=== PATIENT | female | born 1970 | race Caucasian/White ===

== ENCOUNTER → 2016-12-13 | Emergency (ER) | payer OTHER ==
[~2016-12-13] VITALS: Ht 170.2 cm; Wt 53.5 kg
[~2016-12-13] MED LIST: /MOXI40TA; ABIL5TAB5 PO; ACET65TA; AMLO10TA2 PO; ATOR40TA PO; CHLO125TA PO; CITA20TA4 PO; COMBIVENT; FERR325T; FERR325T PO; FLEXERIL PO; HYDR-4274 PO; HYDR25TA6; HYZAAR; IRBE300T10 PO; LABE10TAB PO; LABE200T; LABE20TAB PO; LABE30TA PO; LOPRESSOR; NAPR500T PO; NAPROXEN 250 MG TAB PO ONE; NICO21DI4; NORC5TAB PO; PERC5TAB6 PO; PROV90AE; SPIR25TA2 PO; TRAZ50TA4 PO; VITA50003 PO; [UNRECOGNIZED DRUG - CODE] PO
[2016-12-13 16:16] VITALS: BP 213/131
== END | disposition home or self-care (01) ==
LOC: M ED 17:14
DX: R68.84 Jaw pain (principal)

== ENCOUNTER → 2017-02-18 | Outpatient (CLI) | payer OTHER ==
[~2017-02-18] MED LIST changes: -NAPROXEN 250 MG TAB PO ONE; +NORC1TAB4 PO; -NORC5TAB PO
[2017-02-18 16:18] LABS: ALBUMIN 3.9 GM/DL (3.2-5.2); ALBUMIN/GLOBULIN RATIO 1.11 (1.00-1.93); ALKALINE PHOSPHATASE 49 U/L (45-117); ALT/SGPT 27 U/L (12-78); ANION GAP 6 MEQ/L (8-16); AST/SGOT 24 U/L (15-37); BILIRUBIN,TOTAL 0.4 MG/DL (0.2-1.0); BLOOD UREA NITROGEN 9 MG/DL (7-18); CALCIUM LEVEL 8.6 MG/DL (8.5-10.1); CARBON DIOXIDE LEVEL 27 MEQ/L (21-32); CHLORIDE LEVEL 105 MEQ/L (98-107); CHOLESTEROL LEVEL 203 MG/DL (<200); CREATININE FOR GFR 0.78 MG/DL (0.55-1.02); GLOMERULAR FILTRATION RATE > 60.0 (>58); GLUCOSE, FASTING 109 MG/DL (70-105); POTASSIUM SERUM 4.7 MEQ/L (3.5-5.1); SODIUM LEVEL 138 MEQ/L (136-145); TOTAL PROTEIN 7.4 GM/DL (6.4-8.2); TRIGLYCERIDES LEVEL 86 MG/DL (<150)
== END ==
LOC: M SMT 11:22
PROVIDERS: ATTEND Internal Medicine Cardiovascular Disease
DX: E78.5 Hyperlipidemia, unspecified (principal); I10 Essential (primary) hypertension

== ENCOUNTER 2017-11-27 20:45 | Emergency (ER) | payer OTHER, SELFPAY | END 2017-11-27 21:47 | disposition home or self-care (01) | LOC: M ED 20:45 | DX: Z04.6 Encounter for general psychiatric examination, requested by authority (principal); F41.8 Other specified anxiety disorders; I10 Essential (primary) hypertension; F17.200 Nicotine dependence, unspecified, uncomplicated; Z79.899 Other long term (current) drug therapy | CPT/HCPCS: 99284 ==

== ENCOUNTER 2017-11-30 10:38 | Inpatient (IN) | payer MEDICAID, OTHER ==
[2017-11-30 11:24] LABS: HEMOGLOBIN 14.7 g/dl (12.0-16.0); MEAN CORPUSCULAR HEMOGLOBIN 32.7 pg (27.0-33.0); MEAN CORPUSCULAR VOLUME 93.3 fl (80.0-96.0); PLATELET COUNT, AUTOMATED 213 10^3/uL (150-450)
[2017-11-30 11:39] LABS: CONTROL LINE HCG INT CTR LINE PRESENT; HCG, SERUM QUALITATIVE NEGATIVE (NEGATIVE)
[2017-11-30 11:55] LABS: ALKALINE PHOSPHATASE 63 U/L (45-117); ALT/SGPT 35 U/L (12-78); ANION GAP 13 MEQ/L (8-16); AST/SGOT 32 U/L (7-37); BLOOD UREA NITROGEN 6 MG/DL (7-18); CALCIUM LEVEL 8.5 MG/DL (8.5-10.1); CARBON DIOXIDE LEVEL 22 MEQ/L (21-32); CHLORIDE LEVEL 105 MEQ/L (98-107); CREATININE FOR GFR 0.64 MG/DL (0.55-1.30); GLOMERULAR FILTRATION RATE > 60.0 (>58); GLUCOSE, FASTING 135 MG/DL (70-100); POTASSIUM SERUM 3.6 MEQ/L (3.5-5.1); SODIUM LEVEL 140 MEQ/L (136-145)
[2017-11-30 11:56] LABS: ACETAMINOPHEN LEVEL < 2.0 UG/ML (10.0-30.0); ALBUMIN/GLOBULIN RATIO 1.21 (1.00-1.93); BILIRUBIN,DIRECT < 0.1 MG/DL (0.0-0.2); BILIRUBIN,TOTAL 0.2 MG/DL (0.2-1.0); ETHYL ALCOHOL (ETHANOL) 0.161 % (0.000-0.010); SALICYLATE LEVEL 3.7 MG/DL (5.0-30.0); TOTAL PROTEIN 7.3 GM/DL (6.4-8.2)
[2017-11-30 12:18] LABS: AMPHETAMINES LEVEL URINE NEGATIVE (NEGATIVE); BARBITURATES URINE NEGATIVE (NEGATIVE); BENZODIAZEPINES URINE NEGATIVE (NEGATIVE); CANNABINOIDS URINE NEGATIVE (NEGATIVE); COCAINE METABOLITE URINE NEGATIVE (NEGATIVE); METHADONE URINE NEGATIVE (NEGATIVE); OPIATES URINE NEGATIVE (NEGATIVE); PHENCYCLIDINE URINE NEGATIVE (NEGATIVE)
[2017-11-30] MEDS ORDERED: MOM 30ML SUSPENSION UDC PO (19:00)
[2017-11-30] MEDS ORDERED: MAALOX 30 ML SUSP *UDC PO (19:00)
[2017-11-30] MEDS: SPIRONOLACTONE 25 MG TAB PO (21:41)
[2017-11-30] MEDS: LABETALOL 200 MG TAB PO (21:41)
[2017-11-30] MEDS: CHLORTHALIDONE 12.5MG PER 1/2 TABLET PO (21:41)
[2017-11-30] MEDS: ACETAMINOPHEN TAB 650MG DOSE (2X325MG) PO (21:42)
[2017-11-30] MEDS: traZODone 50 MG TAB PO (22:08)
[2017-12-01] MEDS: LABETALOL 200 MG TAB PO ×2 (08:28→21:39)
[2017-12-01] MEDS: amLODIPine 10 MG TAB PO (08:28)
[2017-12-01] MEDS: ACETAMINOPHEN TAB 650MG DOSE (2X325MG) PO ×2 (09:29→21:40)
[2017-12-01] MEDS: ALBUTEROL 90 MCG/ACT 8GM HFA INHALER INH ×2 (09:29→21:42)
[2017-12-01] MEDS ORDERED: FLUoxetine 10 MG CAP PO (16:00)
[2017-12-01] MEDS: FLUoxetine 10 MG CAP PO (17:27)
[2017-12-01] MEDS: SPIRONOLACTONE 25 MG TAB PO (21:40)
[2017-12-01] MEDS: traZODone 50 MG TAB PO (21:40)
[2017-12-01] MEDS: CHLORTHALIDONE 12.5MG PER 1/2 TABLET PO (21:40)
[2017-12-02] MEDS: ACETAMINOPHEN TAB 650MG DOSE (2X325MG) PO (05:05)
[2017-12-02] MEDS: LABETALOL 200 MG TAB PO ×2 (09:43→21:48)
[2017-12-02] MEDS: FLUoxetine 10 MG CAP PO (09:43)
[2017-12-02] MEDS: amLODIPine 10 MG TAB PO (09:43)
[2017-12-02] MEDS: GABAPENTIN 100 MG CAP PO ×2 (16:24→21:49)
[2017-12-02] MEDS: IBUPROFEN 600 MG TAB PO (21:48)
[2017-12-02] MEDS: CHLORTHALIDONE 12.5MG PER 1/2 TABLET PO (21:48)
[2017-12-02] MEDS: SPIRONOLACTONE 25 MG TAB PO (21:48)
[2017-12-02] MEDS: traZODone 50 MG TAB PO (21:51)
[2017-12-03] MEDS: ACETAMINOPHEN TAB 650MG DOSE (2X325MG) PO ×3 (02:14→22:27)
[2017-12-03] MEDS: LABETALOL 200 MG TAB PO ×2 (08:32→22:24)
[2017-12-03] MEDS: GABAPENTIN 100 MG CAP PO ×3 (08:32→22:24)
[2017-12-03] MEDS: FLUoxetine 10 MG CAP PO (08:33)
[2017-12-03] MEDS: amLODIPine 10 MG TAB PO (08:33)
[2017-12-03] MEDS: IBUPROFEN 600 MG TAB PO ×2 (08:33→22:20)
[2017-12-03] MEDS: ALBUTEROL 90 MCG/ACT 8GM HFA INHALER INH (08:34)
[2017-12-03] MEDS: SPIRONOLACTONE 25 MG TAB PO (22:20)
[2017-12-03] MEDS: CHLORTHALIDONE 12.5MG PER 1/2 TABLET PO (22:20)
[2017-12-04] MEDS: LABETALOL 200 MG TAB PO (08:38)
[2017-12-04] MEDS: GABAPENTIN 100 MG CAP PO (08:38)
[2017-12-04] MEDS: amLODIPine 10 MG TAB PO (08:38)
[2017-12-04] MEDS: FLUoxetine 10 MG CAP PO (08:38)
== END 2017-12-04 11:20 | disposition home or self-care (01) | DRG 881 ==
LOC: M PSY 12-02 18:34 → M ED 10:38 → M ED INP 15:05 → M PSY 16:05
DX: F32.9 Major depressive disorder, single episode, unspecified (principal); I10 Essential (primary) hypertension; Z98.1 Arthrodesis status; Z85.41 Personal history of malignant neoplasm of cervix uteri; Z79.899 Other long term (current) drug therapy; Z88.8 Allergy status to other drugs, medicaments and biological substances; Z91.013 Allergy to seafood

== ENCOUNTER → 2017-12-11 | Outpatient (CLI) | payer OTHER | LOC: M PLARAD 13:35 | DX: M48.02 Spinal stenosis, cervical region (principal); Z98.1 Arthrodesis status | CPT/HCPCS: 72156 ==

== ENCOUNTER → 2017-12-24 | Outpatient (REF) | payer OTHER ==
[2017-12-24 22:40] LABS: CHLAMYDIA DNA AMPLIFICATION NEGATIVE (NEGATIVE); GC DNA AMPLIFICATION NEGATIVE (NEGATIVE)
== END ==
LOC: M LAB REF 17:13
DX: Z11.3 Encounter for screening for infections with a predominantly sexual mode of transmission (principal)

== ENCOUNTER → 2017-12-24 | Outpatient (REF) | payer OTHER, MEDICAID ==
[2017-12-24 18:41] LABS: BASO % 0.4 % (0.0-1.0); EOS # 0.1 10^3/uL (0.0-0.50); EOS % 1.3 % (0.0-3.0); HEMATOCRIT 42.7 % (36.0-47.0); HEMOGLOBIN 14.2 g/dl (12.0-15.5); IMMATURE GRANULOCYTE % 0.1 % (0-3.0); LYMPH # 1.2 10^3/uL (1.5-4.5); LYMPH % 17.9 % (24.0-44.0); MEAN CORPUSCULAR HEMOGLOBIN 32.1 pg (27.0-33.0); MEAN CORPUSCULAR HGB CONC 33.3 g/dl (32.0-36.5); MEAN CORPUSCULAR VOLUME 96.4 fl (80.0-96.0); MONO # 0.4 10^3/uL (0.0-0.8); MONO % 6.1 % (0.0-5.0); NEUTROPHILS % 74.2 % (36.0-66.0); PLATELET COUNT, AUTOMATED 206 10^3/uL (150-450); RED BLOOD COUNT 4.43 10^6/uL (4.00-5.40); RED CELL DISTRIBUTION WIDTH 14.2 % (11.5-14.5); WHITE BLOOD COUNT 6.7 10^3/uL (4.0-10.0)
[2017-12-24 18:46] LABS: ALBUMIN 4.1 GM/DL (3.2-5.2); ALBUMIN/GLOBULIN RATIO 1.21 (1.00-1.93); ALKALINE PHOSPHATASE 54 U/L (45-117); ALT/SGPT 44 U/L (12-78); ANION GAP 10 MEQ/L (8-16); AST/SGOT 33 U/L (7-37); BILIRUBIN,TOTAL 0.3 MG/DL (0.2-1.0); BLOOD UREA NITROGEN 9 MG/DL (7-18); CALCIUM LEVEL 8.5 MG/DL (8.5-10.1); CARBON DIOXIDE LEVEL 25 MEQ/L (21-32); CHLORIDE LEVEL 110 MEQ/L (98-107); CHOLESTEROL LEVEL 190 MG/DL (<200); CHOLESTEROL RISK RATIO 1.792 (<5); CREATININE FOR GFR 0.68 MG/DL (0.55-1.30); FREE T4 0.68 NG/DL (0.76-1.46); GLOMERULAR FILTRATION RATE > 60.0 (>58); GLUCOSE, FASTING 93 MG/DL (70-100); HDL CHOLESTEROL 106 MG/DL (>40); LDL CHOLESTEROL 65.8 MG/DL (<100); NON-HDL-C 84 MG/DL; POTASSIUM SERUM 3.9 MEQ/L (3.5-5.1); SODIUM LEVEL 145 MEQ/L (136-145); TOTAL PROTEIN 7.5 GM/DL (6.4-8.2); TRIGLYCERIDES LEVEL 91 MG/DL (<150)
== END ==
LOC: M LAB REF 17:23
DX: F34.1 Dysthymic disorder (principal); Z13.220 Encounter for screening for lipoid disorders

== ENCOUNTER 2018-02-05 10:04 | Emergency (ER) | payer OTHER, MEDICAID ==
[2018-02-05] MEDS: ASPIRIN 81 MG CHEW TABLET PO (10:37)
[2018-02-05 10:47] LABS: BASO % 0.6 % (0.0-1.0); EOS # 0.1 10^3/uL (0.0-0.50); EOS % 0.9 % (0.0-3.0); HEMATOCRIT 42.8 % (36.0-47.0); HEMOGLOBIN 14.7 g/dl (12.0-15.5); IMMATURE GRANULOCYTE % 0.7 % (0-3.0); LYMPH % 18.5 % (24.0-44.0); MEAN CORPUSCULAR HEMOGLOBIN 32.3 pg (27.0-33.0); MEAN CORPUSCULAR HGB CONC 34.3 g/dl (32.0-36.5); MEAN CORPUSCULAR VOLUME 94.1 fl (80.0-96.0); MONO # 0.6 10^3/uL (0.0-0.8); MONO % 11.8 % (0.0-5.0); NEUTROPHILS # 3.6 10^3/uL (1.8-7.7); NEUTROPHILS % 67.5 % (36.0-66.0); PLATELET COUNT, AUTOMATED 144 10^3/uL (150-450); RED BLOOD COUNT 4.55 10^6/uL (4.00-5.40); RED CELL DISTRIBUTION WIDTH 13.9 % (11.5-14.5); WHITE BLOOD COUNT 5.3 10^3/uL (4.0-10.0)
[2018-02-05 11:21] LABS: ALBUMIN 3.8 GM/DL (3.2-5.2); ALBUMIN/GLOBULIN RATIO 1.12 (1.00-1.93); ALKALINE PHOSPHATASE 71 U/L (45-117); ALT/SGPT 51 U/L (12-78); ANION GAP 9 MEQ/L (8-16); AST/SGOT 43 U/L (7-37); BILIRUBIN,DIRECT 0.2 MG/DL (0.0-0.2); BILIRUBIN,TOTAL 0.7 MG/DL (0.2-1.0); BLOOD UREA NITROGEN 17 MG/DL (7-18); CALCIUM LEVEL 8.7 MG/DL (8.5-10.1); CARBON DIOXIDE LEVEL 27 MEQ/L (21-32); CHLORIDE LEVEL 103 MEQ/L (98-107); CK-MB VALUE MASS 1.3 NG/ML (<3.6); CPK CREATINE PHOSPHOKINASE 83 U/L (26-192); CREATININE FOR GFR 0.81 MG/DL (0.55-1.30); GLOMERULAR FILTRATION RATE > 60.0 (>58); GLUCOSE, FASTING 115 MG/DL (70-100); MB/CK RELATIVE INDEX 1.56 (< OR =4); NT-PRO BNP 105 PG/ML (<125); POTASSIUM SERUM 4.2 MEQ/L (3.5-5.1); SODIUM LEVEL 139 MEQ/L (136-145); TOTAL PROTEIN 7.2 GM/DL (6.4-8.2); TROPONIN I < 0.02 NG/ML (< 0.10)
[2018-02-05] MEDS: amLODIPine 5 MG TAB PO (12:53)
[2018-02-05] MEDS: LABETALOL HCL 100 MG/20 ML VIAL IV (12:53)
[2018-02-05] MEDS: MAALOX 30 ML SUSP *UDC PO (13:38)
[2018-02-05] MEDS: PHENobarbital ELIX 20 MG/5 ML UD PO (13:38)
== END 2018-02-05 13:39 | disposition home or self-care (01) ==
LOC: M ED 10:04
DX: R00.2 Palpitations (principal); R07.89 Other chest pain; I45.19 Other right bundle-branch block; I10 Essential (primary) hypertension; E78.5 Hyperlipidemia, unspecified; Z82.49 Family history of ischemic heart disease and other diseases of the circulatory system; I25.2 Old myocardial infarction; Z79.899 Other long term (current) drug therapy; Z88.8 Allergy status to other drugs, medicaments and biological substances; Z91.013 Allergy to seafood
CPT/HCPCS: 71045

== ENCOUNTER → 2018-03-05 | Outpatient (CLI) | payer OTHER | LOC: M OUTALCOH 09:56 | DX: Z03.89 Encounter for observation for other suspected diseases and conditions ruled out (principal) ==

== ENCOUNTER 2018-03-15 10:22 | Outpatient (RCR) | payer MEDICAID | END 2018-04-13 | LOC: M OUTALCOH 10:22 | DX: Z03.89 Encounter for observation for other suspected diseases and conditions ruled out (principal) ==

== ENCOUNTER 2018-04-14 19:12 | Emergency (ER) | payer OTHER, MEDICAID | END 2018-04-14 20:45 | disposition home or self-care (01) | LOC: M ED 19:12 | DX: T24.202A Burn of second degree of unspecified site of left lower limb, except ankle and foot, initial encounter (principal); Y92.9 Unspecified place or not applicable; Y93.9 Activity, unspecified; I25.2 Old myocardial infarction; I10 Essential (primary) hypertension; G43.909 Migraine, unspecified, not intractable, without status migrainosus; M54.9 Dorsalgia, unspecified; Z87.440 Personal history of urinary (tract) infections; F41.9 Anxiety disorder, unspecified; F32.9 Major depressive disorder, single episode, unspecified; Z85.41 Personal history of malignant neoplasm of cervix uteri; Z79.899 Other long term (current) drug therapy; Z91.013 Allergy to seafood; Z88.8 Allergy status to other drugs, medicaments and biological substances | CPT/HCPCS: 99283 ==

== ENCOUNTER → 2018-04-27 | Outpatient (CLI) | payer OTHER ==
[2018-04-27 11:12] LABS: PLATELET COUNT, AUTOMATED 235 10^3/uL (150-450)
[2018-04-27 11:35] LABS: INR 1.03; PARTIAL THROMBOPLASTIN TIME 31.5 SECONDS (25.4-37.6); PROTHROMBIN TIME 13.6 SECONDS (12.1-14.4)
== END ==
LOC: M LAB 10:49
DX: M48.02 Spinal stenosis, cervical region (principal)
CPT/HCPCS: 85049

== ENCOUNTER 2018-10-01 21:20 | Emergency (ER) | payer OTHER ==
[~2018-10-01] VITALS: Ht 170.2 cm; Wt 54.5 kg
[~2018-10-01 21:20] MED LIST changes: +ABIL1TAB11 PO; -ABIL5TAB5 PO; -AMLO10TA2 PO; +AMLO10TA5 PO; -ATOR40TA PO; +ATOR40TA75 PO; +CHLO25TA PO; +FERR1TAB8 PO; -FERR325T PO; +GABA-1171 PO; -HYDR-4274 PO; +HYDR50TA70 PO; +KEFL500C17 PO; +LABE300T2 PO; -LABE30TA PO; +NAPR-50 PO; -NAPR500T PO; +PERC5TAB12 PO; -PERC5TAB6 PO; +PROZ10CA7 PO; +SPIR-10 PO; -SPIR25TA2 PO; +TRAZ-160 PO; -TRAZ50TA4 PO; +TRAZO50TA PO; +VENTAER INH; -VITA50003 PO; +VITA50005 PO
[2018-10-01] MEDS ORDERED: HYDR-3363 PO (21:32)
[2018-10-01] MEDS ORDERED: CITA40TA4 PO (21:32)
[2018-10-01] MEDS ORDERED: METH1TAB40 PO (21:32)
[2018-10-01] MEDS ORDERED: TRAZ-163 (21:32)
[2018-10-01] MEDS ORDERED: KETOROLAC 30 MG/ML VIAL (J1885) IV ONE (22:15)
[2018-10-01 22:45] VITALS: BP 180/90
--- NOTE | 2018-10-02 13:10 | REP ---
LUMBAR SPINE SERIES, COMPLETE: 10/01/2018. Clinical history: Trauma, patient fell. Back pain. Comparison: CT abdomen pelvis reconstructions 12/19/2014. Findings: Five views are provided. There are no compression deformities in the lumbar spine. There is a gentle dextrorotatory curve centered at L2-3. Pedicle, spinous and transverse processes intact. Lower thoracic levels and ribs intact. Sacral ala, foramina, SI joints unremarkable. I see no spondylolysis or spondylolisthesis. Slight loss of lordosis on the lateral view but unchanged from the CT 4 years ago. Facet arthropathy at L4-5 and L5-S1. Impression: 1. Some degenerative facet arthritic changes lower lumbar spine and minimal degenerative changes at the endplates without compression deformity or malalignment. 2. Slight loss of lordosis as seen on previous CT. This may be due to spasm or the mild dextrorotatory curvature of the spine. Electronically Signed by Olayinka Bai MD 10/02/2018 02:03 P
--- NOTE | 2018-10-02 13:11 | REP ---
AP PELVIS WITH BILATERAL HIPS: 10/01/2018. Clinical history: Trauma, patient fell. Pain. Comparison: CT abdomen pelvis 12/19/2014. Findings: AP pelvis: This sacral ala and foramina symmetric and normal. SI joints and iliac wings unremarkable pelvic ring intact. Pubic rami, pubic symphysis and hips grossly intact. Right hip: There is no evidence of fracture, AVN or focal bone lesion in the hip the acetabular margins are sharply defined. No joint space narrowing. Left hip: There is no evidence of fracture, AVN or focal bone lesion in the hip the acetabular margins are sharply defined. No joint space narrowing. Impression: 1. No evidence of fracture or acute bony finding, pelvis or hips. Electronically Signed by Olayinka Bai MD 10/02/2018 02:03 P
== END 2018-10-01 23:22 | disposition home or self-care (01) ==
LOC: M ED 21:20
DX: M54.5 Low back pain (principal); S70.01XA Contusion of right hip, initial encounter; W19.XXXA Unspecified fall, initial encounter; Y92.89 Other specified places as the place of occurrence of the external cause; Y99.0 Civilian activity done for income or pay; I10 Essential (primary) hypertension; F33.9 Major depressive disorder, recurrent, unspecified; F41.9 Anxiety disorder, unspecified
CPT/HCPCS: 72110; 73521; 96374; 99284; J1885

== ENCOUNTER → 2018-12-28 | Outpatient (REF) | payer OTHER, MEDICAID ==
[~2018-12-28] MED LIST changes: -/MOXI40TA; +AVEL1TAB2; -CITA20TA4 PO; +CITA20TA6 PO; +CITA40TA4 PO; +HYDR-3363 PO; +METH1TAB40 PO; -NAPR-50 PO; +NAPR-837 PO; -NORC1TAB4 PO; +NORC1TAB7 PO; +TRAZ-163
[2018-12-28 20:30] LABS: CHLAMYDIA DNA AMPLIFICATION NEGATIVE (NEGATIVE); GC DNA AMPLIFICATION NEGATIVE (NEGATIVE)
== END ==
LOC: M LAB REF 17:22
PROVIDERS: ATTEND Nurse Practitioner Family
DX: Z12.4 Encounter for screening for malignant neoplasm of cervix (principal); R87.610 Atypical squamous cells of undetermined significance on cytologic smear of cervix (ASC-US)

== ENCOUNTER 2019-03-01 08:45 | Outpatient (RCR) | payer MEDICARE, OTHER ==
[~2019-03-01 08:45] MED LIST changes: -TRAZ-160 PO; +TRAZ-252 PO; +TRAZ1TAB10 PO; -TRAZO50TA PO
== END 2019-03-13 ==
LOC: M PT 08:45
PROVIDERS: ATTEND Physician Assistant
DX: M50.31 Other cervical disc degeneration, high cervical region (principal); M50.223 Other cervical disc displacement at C6-C7 level; M48.02 Spinal stenosis, cervical region; M47.22 Other spondylosis with radiculopathy, cervical region

== ENCOUNTER 2019-04-11 17:46 | Emergency (ER) | payer MEDICARE, OTHER ==
[~2019-04-11] VITALS: Ht 167.6 cm; Wt 59.1 kg
[~2019-04-11 17:46] MED LIST changes: -TRAZ-163; +TRAZ-257
[2019-04-11 19:00] VITALS: BP 190/122
[2019-04-12] MEDS ORDERED: GABA-843 (08:50)
[2019-04-12] MEDS ORDERED: AMLO5TAB6 PO (13:46)
[2019-04-12] MEDS ORDERED: MOBI4TAB PO (13:46)
[2019-04-12] MEDS ORDERED: HYDR-3363 PO (13:46)
[2019-04-12] MEDS ORDERED: GABA600T4 PO ×2 (13:46)
--- NOTE | 2019-04-13 19:18 | ECGEPIP ---
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
== END 2019-04-11 19:25 | disposition left against medical advice (07) ==
LOC: M ED 17:46
DX: Z53.29 Procedure and treatment not carried out because of patient's decision for other reasons (principal)

== ENCOUNTER 2019-04-12 08:44 | Inpatient (IN) | payer MEDICARE, OTHER ==
[~2019-04-12] VITALS: Ht 167.6 cm; Wt 58.7 kg
[~2019-04-12 08:44] MED LIST changes: +TRAZ-163; -TRAZ-257
[2019-04-12] MEDS ORDERED: GABA-843 (08:50)
[2019-04-12] MEDS ORDERED: LABETALOL HCL 100 MG/20 ML VIAL IV STA ×3 (09:14→14:27)
[2019-04-12 09:29] LABS: BASO % 0.4 % (0.0-1.0); EOS # 0.1 10^3/uL (0.0-0.50); EOS % 0.6 % (0.0-3.0); HEMATOCRIT 43.8 % (36.0-47.0); LYMPH # 2.2 10^3/uL (1.5-4.5); LYMPH % 23.6 % (24.0-44.0); MEAN CORPUSCULAR HEMOGLOBIN 32.4 pg (27.0-33.0); MEAN CORPUSCULAR HGB CONC 34.2 g/dl (32.0-36.5); MEAN CORPUSCULAR VOLUME 94.6 fl (80.0-96.0); MONO # 0.6 10^3/uL (0.0-0.8); NEUTROPHILS # 6.4 10^3/uL (1.8-7.7); NEUTROPHILS % 69.1 % (36.0-66.0); PLATELET COUNT, AUTOMATED 236 10^3/uL (150-450); RED BLOOD COUNT 4.63 10^6/uL (4.00-5.40); WHITE BLOOD COUNT 9.3 10^3/uL (4.0-10.0)
[2019-04-12] MEDS ORDERED: ONDANSETRON 4MG/2ML VIAL (J2405) As Ordered ONE (09:33)
[2019-04-12] MEDS ORDERED: GI COCKTAIL 50ML BTL(HYOSCYAMINE/MAALOX/LIDOCAINE VISCOUS)(1:3:1) PO ONE (09:45)
[2019-04-12] MEDS ORDERED: ONDANSETRON 4MG/2ML VIAL (J2405) IV ONE (09:45)
[2019-04-12 10:15] LABS: BLOOD UREA NITROGEN 7 MG/DL (7-18); CALCIUM LEVEL 8.8 MG/DL (8.5-10.1); CARBON DIOXIDE LEVEL 19 MEQ/L (21-32); CHLORIDE LEVEL 94 MEQ/L (98-107); CK-MB VALUE MASS 2.6 NG/ML (<3.6); CPK CREATINE PHOSPHOKINASE 184 U/L (26-192); CREATININE FOR GFR 0.76 MG/DL (0.55-1.30); GLOMERULAR FILTRATION RATE > 60.0 (>58); GLUCOSE, FASTING 100 MG/DL (70-100); MB/CK RELATIVE INDEX 1.41 (< OR =4); POTASSIUM SERUM 3.9 MEQ/L (3.5-5.1); SODIUM LEVEL 129 MEQ/L (136-145); TROPONIN I < 0.02 NG/ML (< 0.10)
--- NOTE | 2019-04-12 10:20 | REP ---
Clinical: Acute chest pain . Comparison: 02/05/2018 . Findings: The mediastinum and cardiac silhouette are stable and within normal limits for portable technique. The lung lopez are clear without acute consolidation, effusion, or pneumothorax. Skeletal structures are intact. Impression: No acute cardiopulmonary process appreciated. Electronically Signed by Finn Hadley MD 04/12/2019 10:03 A
[2019-04-12 10:51] LABS: APPEARANCE, URINE CLEAR (CLEAR); BACTERIA, URINE AUTO NEGATIVE (NEGATIVE); BILIRUBIN, URINE AUTO NEGATIVE (NEGATIVE); BLOOD, URINE BLOOD NEGATIVE (NEGATIVE); COLOR, URINE STRAW (YELLOW); GLUCOSE, URINE (UA) AUTO NEGATIVE (NEGATIVE); KETONE, URINE AUTO TRACE mg/dL (NEGATIVE); LEUKOCYTE ESTERASE, URINE AUTO NEGATIVE (NEGATIVE); NITRITE, URINE AUTO NEGATIVE (NEGATIVE); PROTEIN, URINE AUTO NEGATIVE (NEGATIVE); RBC, URINE AUTO 1 /HPF (0-3); SPECIFIC GRAVITY URINE AUTO 1.003 (1.002-1.035); SQUAMOUS EPITHELIAL CELL UR AU 0 /HPF (0-6); UROBILINOGEN, URINE AUTO 0.2 mg/dL (0.0-2.0); WBC, URINE AUTO 0 /HPF (0-3)
[2019-04-12] MEDS ORDERED: PROMETHAZINE INJ 25 MG/ML VIAL (J2550) IV ONE (12:15)
[2019-04-12] MEDS ORDERED: AMLO5TAB6 PO (13:46)
[2019-04-12] MEDS ORDERED: MOBI4TAB PO (13:46)
[2019-04-12] MEDS ORDERED: GABA600T4 PO ×2 (13:46)
[2019-04-12] MEDS ORDERED: HYDR-3363 PO (13:46)
[2019-04-12] MEDS ORDERED: LABETALOL HCL 100 MG/20 ML VIAL IV SCH ×2 (17:00→18:00)
[2019-04-12] MEDS ORDERED: FAMOTIDINE 20 MG TAB PO ONE (17:00)
[2019-04-12] MEDS ORDERED: LABETALOL HCL 100 MG/20 ML VIAL IV PRN (17:30)
[2019-04-12 18:14] VITALS: BP 138/75
[2019-04-12 20:00] VITALS: BP 150/91
[2019-04-12] MEDS ORDERED: MELOXICAM (MOBIC) 7.5 MG TAB PO PRN (20:05)
[2019-04-12] MEDS: LABETALOL 200 MG TAB PO SCH (20:12)
[2019-04-12] MEDS: GABAPENTIN 300 MG CAP PO SCH ×2 (20:12→20:14)
[2019-04-12] MEDS ORDERED: ACETAMINOPHEN 500 MG TAB PO PRN (20:15)
[2019-04-12] MEDS ORDERED: MAALOX 30 ML SUSP *UDC PO PRN (20:15)
--- NOTE | 2019-04-12 20:47 | ECHO ---
DATE OF PROCEDURE: 04/12/2019 AGE: 48 GENDER: Female HEIGHT: 66 inches WEIGHT: 130 pounds BODY SURFACE AREA: 1.67 m2 PATIENT LOCATION: Inpatient, PCU, room 3222 REFERRING PHYSICIAN: Dr. Dawood Monsalve INDICATION: Chest pain. 2-D MEASUREMENTS: RV: 3.0 cm LV: 3.7 cm Septum: 1.3 cm Posterior wall: 1.3 cm Aortic root: 3.3 cm LA: 3.6 cm LVEF: 80% DOPPLER MEASUREMENTS: AV: 1.4 m/s LVOT: 1.2 m/s LVOT diameter: 2.2 cm MV-E: 43, A: 63, EA ratio: 0.7 Early mitral deceleration time: 292 ms E prime: 5.8, A prime: 7.3, E/E prime ratio: 7.4 PV: 1.0 m/s Pulmonary artery acceleration time: 116 ms PASP: 32 mmHg IVC: 1.5 cm COMMENTS Normal sinus rhythm without intraventricular conduction disturbance. M-mode and two-dimensional echocardiography was performed with pulsed, continuous wave, color flow and tissue Doppler studies. Mild concentric left ventricle hypertrophy with hyperkinetic wall motion. Left atrial size upper limits of normal with Doppler evidence of an impairment of LV diastolic function but currently normal estimated mean left atrial pressure. Normal right heart chamber sizes and motion with current Doppler sign of borderline pulmonary hypertension. Normal IVC size and collapse against an elevated central venous pressure. Normal appearing and functioning valvular structures. Normal aortic root size. No apparent intracardiac mass or pericardial effusion.
--- NOTE | 2019-04-12 21:03 | HPEPDOC ---
General Date of Admission Apr 12, 2019 at 16:35 Date of Service: Apr 12, 2019 Chief Complaint The patient is a 48-year-old female admitted with a reason for visit of Uncontrolled Stage 2 Hypertension. Source: Patient History of Present Illness HPI: 48 y/o F with uncontrolled HTN, hx depression, anxiety, hx EtOH abuse, former smoker presents with multiple general complaints including weakness, fatigue, headache, epigastric pain. This all started the night prior to presentation. Patient states she was recently seen by her outside welfare centre manager Dr. Nuno who recently (Approx 2 weeks ago) decreased her antihypertensive medications (decreased Labetalol 200mg TID to BID) and since then she has noted having increased blood pressures. This morning when she took her blood pressure at home she noted her pressure to be >200/[address] Cuevas who instructed her to take an additional dose of Labetalol and come to the ED for evaluation. In the ED she was found to be hypertensive to 220/130 with HR in the 80s. She was given Labetalol 20mg IV x3 in attempt to reduce her BP which remained elevated to 185/100 at the time of my evaluation. Her only complaint is of a mild headache at this time. She denies fevers, chills, blurry vision, confusion, chest pain, palpitations, cough, wheezing, SOB, orthopnea, abd pain, n/v/diarrhea, dysuria, polyuria, incontinence, focal weakness, LE swelling, falls, trauma. 10 point ROS negative except as listed in HPI. Allergies: Lisinopril: patient endorses anxiety, grinding teeth. Shellfish: severe itching Home Medications: Labetalol 200mg BID, Chlorthaladone 12.5mg daily, Spironolactone 25mg daily, Norvasc 5mg daily. Home Medications Scheduled Amlodipine Besylate (Amlodipine Besylate) 5 Mg Tablet, 5 MG PO DAILY, (Reported) Chlorthalidone (Chlorthalidone) 25 Mg Tab, 12.5 MG PO DAILY, (Reported) NO RECORD OF THIS MEDICATION FROM PHARMACY - PATIENT STATES SHE IS TAKING. LAST RX FROM DR NUNO FROM 2015 Citalopram Hydrobromide (Citalopram HBr) 40 Mg Tab, 40 MG PO DAILY, (Reported) Gabapentin (Gabapentin) 600 Mg Tablet, 600 MG PO BID, (Reported) AM AND HS Gabapentin (Gabapentin) 600 Mg Tablet, 1,200 MG PO DAILY, (Reported) NOON Labetalol HCl (Labetalol HCl) 200 Mg Tab, 200 MG PO TID, (Reported) PATIENT TOOK 400MG 04/12/19 AM Spironolactone (Spironolactone) 25 Mg Tab, 25 MG PO DAILY, (Reported) NO RECORD OF THIS MEDICATION FROM PHARMACY - PATIENT STATES SHE IS TAKING. LAST RX FROM DR NUNO FROM 2016 Scheduled PRN Hydroxyzine HCl (Hydroxyzine HCl) 25 Mg Tablet, 25 MG PO BID PRN for ANXIETY, (Reported) Meloxicam (Mobic) 7.5 Mg Tablet, 7.5 MG PO BID PRN for PAIN, (Reported) Methocarbamol (Methocarbamol) 500 Mg Tab, 500 MG PO BID PRN for SPASMS, (Reported) Allergies Coded Allergies: lisinopril (Verified Allergy, Unknown, 04/11/19) shellfish derived (Verified Allergy, Unknown, 04/11/19) Past Medical History Medical History Uncontrolled HTN, Depression, Anxiety, former EtOH abuse, former smoker quit 6 months ago Surgical History spinal fusion, x3, tubal ligation Family History Father alive, 68 y/o, uncontrolled HTN and L CVA Social History * Smoker: former Smoker Alcohol: Denies Drugs: denies lives with , denies illicit drug use (including cocaine), no current EtOH use, denies current tobacco use (quit 6 months ago) A-FIB/CHADSVASC A-FIB History Current/History of A-Fib/PAF?: No Review of Systems Psych: Reports: Mood Normal Physical Examination General Exam: Positive: Cooperative, No Acute Distress Eye Exam: Positive: PERRLA, Conjunctiva & lids normal, EOMI ENT Exam: Positive: Atraumatic, Mucous membr. moist/pink Neck Exam: Positive: Supple Chest Exam: Positive: Clear to auscultation, Normal air movement Heart Exam: Negative: Rate Normal, Bradycardic, Regular Rhythm, Irregular Rhyth m, Normal S1, Normal S2, Gallops, Murmurs, Rubs, Other Telemetry: Positive: No significant arrhythmia Abdomen Exam: Positive: Normal bowel sounds, Soft Neuro Exam: Positive: Normal Speech Psych Exam: Positive: Mental status NL, Mood NL Other physical findings GEN: female of stated age, NAD HEENT: EOMI, MMM, no icterus, neck supple Cardio: S1/S2 present, RRR, no m/r/g, no JVD, No LE edema Pulses bounding Lungs: CTA b/l, good air entry, no rales or rhonchi Abd: soft, nd, nt, bs present, no guarding or rigidity Lymph nodes: no palpable lymphadenopathy MSK: strength 5/5 throughout Neuro: A&Ox3, no focal deficits Psych: Normal mood and affect Vital Signs Vital Signs Date Time Temp Pulse Resp B/P (MAP) Pulse Ox O2 Delivery O2 Flow Rate FiO2 04/12/19 20:12 86 150/91 04/12/19 20:00 97.2 21 93 04/12/19 14:15 Room Air Laboratory Data Labs 24H Laboratory Tests 2 04/12/19 09:14: Immature Granulocyte % (Auto) 0.3, White Blood Count 9.3, Red Blood Count 4.63, Hemoglobin 15.0, Hematocrit 43.8, Mean Corpuscular Volume 94.6, Mean Corpuscular Hemoglobin 32.4, Mean Corpuscular Hemoglobin Concent 34.2, Red Cell Distribution Width 13.7, Platelet Count 236, Neutrophils (%) (Auto) 69.1H, Lymphocytes (%) (Auto) 23.6L, Monocytes (%) (Auto) 6.0H, Eosinophils (%) (Auto) 0.6, Basophils (%) (Auto) 0.4, Neutrophils # (Auto) 6.4, Lymphocytes # (Auto) 2.2, Monocytes # (Auto) 0.6, Eosinophils # (Auto) 0.1, Basophils # (Auto) 0.0, Nucleated Red Blood Cells % (auto) 0.0, Anion Gap 16, Glomerular Filtration Rate > 60.0, Blood Urea Nitrogen 7, Creatinine 0.76, Sodium Level 129L, Potassium Level 3.9, Chloride Level 94L, Carbon Dioxide Level 19L, Calcium Level 8.8, Total Creatine Kinase 184, Creatine Kinase MB 2.6, Creatine Kinase MB Relative Index 1.41, Troponin I < 0.02 04/12/19 10:32: Urine Appearance CLEAR, Urine Color STRAW, Urine pH 6.0, Urine Specific [place] 1.003, Urine Protein NEGATIVE, Urine Glucose (UA) NEGATIVE, Urine Ketones TRAC EH, Urine Urobilinogen 0.2, Urine Bilirubin NEGATIVE, Urine Leukocyte Esterase NEGATIVE, Urine Blood NEGATIVE, Urine Nitrite NEGATIVE, Urine WBC (Auto) 0, Urine RBC (Auto) 1, Urine Hyaline Casts (Auto) 0, Urine Bacteria (Auto) NEGATIVE, Urine Squamous Epithelial Cells 0, Urine Sperm (Auto) CBC/BMP Laboratory Tests 04/12/19 09:14 Red Blood Count 4.63, Mean Corpuscular Volume 94.6, Mean Corpuscular Hemoglobin 32.4, Mean Corpuscular Hemoglobin Concent 34.2, Red Cell Distribution Width 13.7, Neutrophils (%) (Auto) 69.1 H, Lymphocytes (%) (Auto) 23.6 L, Monocytes (%) (Auto) 6.0 H, Eosinophils (%) (Auto) 0.6, Basophils (%) (Auto) 0.4, Neutrophils # (Auto) 6.4, Lymphocytes # (Auto) 2.2, Monocytes # (Auto) 0.6, Eosinophils # (Auto) 0.1, Basophils # (Auto) 0.0, Calcium Level 8.8, Total Creatine Kinase 184 Assessment/Plan 48 y/o F with uncontrolled HTN, hx depression, anxiety, hx EtOH abuse, former smoker presents with multiple general complaints including weakness, fatigue, headache, epigastric pain. Found to have hypertensive urgency without end organ damage but requiring IV medications. Patient admitted to PCU. Hypertensive urgency with uncontrolled HTN -likely due to recent medications changes -restart Labetalol 200mg PO TID, Increase home Amlodipine to 10mg daily, continue Spironolactone -Labetalol 20mg IVP q4 hours PRN BP >180/100, hold if HR <70. 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 Dvt ppx: Lovenox Plan / VTE VTE Prophylaxis Ordered?: Yes Plan Diet: Continue Current Anticipated Discharge: Home RAIAS JEAN MD Apr 12, 2019 21:03
[2019-04-12 21:44] VITALS: BP 129/77
[2019-04-12 23:59] VITALS: BP 135/81
[2019-04-13 04:00] VITALS: BP 130/77
[2019-04-13 06:20] LABS: HEMATOCRIT 42.1 % (36.0-47.0); HEMOGLOBIN 14.1 g/dl (12.0-15.5); MEAN CORPUSCULAR HEMOGLOBIN 31.8 pg (27.0-33.0); MEAN CORPUSCULAR HGB CONC 33.5 g/dl (32.0-36.5); MEAN CORPUSCULAR VOLUME 94.8 fl (80.0-96.0); PLATELET COUNT, AUTOMATED 185 10^3/uL (150-450); RED BLOOD COUNT 4.44 10^6/uL (4.00-5.40); WHITE BLOOD COUNT 5.2 10^3/uL (4.0-10.0)
[2019-04-13 06:57] LABS: ALBUMIN 3.7 GM/DL (3.2-5.2); ALT/SGPT 32 U/L (12-78); BILIRUBIN,TOTAL 0.7 MG/DL (0.2-1.0); BLOOD UREA NITROGEN 14 MG/DL (7-18); CALCIUM LEVEL 8.6 MG/DL (8.5-10.1); CARBON DIOXIDE LEVEL 31 MEQ/L (21-32); CHLORIDE LEVEL 99 MEQ/L (98-107); CREATININE FOR GFR 0.95 MG/DL (0.55-1.30); GLOMERULAR FILTRATION RATE > 60.0 (>58); GLUCOSE, FASTING 81 MG/DL (70-100); POTASSIUM SERUM 3.5 MEQ/L (3.5-5.1); SODIUM LEVEL 137 MEQ/L (136-145); TOTAL PROTEIN 7.4 GM/DL (6.4-8.2)
[2019-04-13 08:00] VITALS: BP 141/86
[2019-04-13] MEDS ORDERED: ENOXAPARIN 40 MG/0.4 ML SYRINGE (J1650) SC SCH (09:00)
[2019-04-13] MEDS ORDERED: CitaloPRAM (CeleXA) 20 MG TAB PO SCH (09:00)
[2019-04-13] MEDS ORDERED: CHLORTHALIDONE 25 MG TAB PO SCH (09:00)
[2019-04-13] MEDS ORDERED: SPIRONOLACTONE 25 MG TAB PO SCH (09:00)
[2019-04-13] MEDS ORDERED: amLODIPine 5 MG TAB PO SCH (09:00)
[2019-04-13] MEDS: LABETALOL 200 MG TAB PO SCH ×2 (09:34→15:26)
[2019-04-13 11:13] VITALS: BP 130/84
[2019-04-13 12:00] VITALS: BP 118/69
[2019-04-13 15:26] VITALS: BP 160/98
[2019-04-13 16:00] VITALS: BP 143/65
--- NOTE | 2019-04-13 19:27 | ECGEPIP ---
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
--- NOTE | 2019-04-13 21:01 | DS.PDOC ---
Discharge Summary General Date of Admission Apr 12, 2019 at 16:35 Discharge Summary PROCEDURES PERFORMED DURING STAY: [None]. ADMITTING DIAGNOSES: 1. . DISCHARGE DIAGNOSES: 1. . COMPLICATIONS/CHIEF COMPLAINT: Uncontrolled Stage 2 Hypertension. HISTORY OF PRESENT ILLNESS: . HOSPITAL COURSE: . DISCHARGE MEDICATIONS: Please see below. ALLERGIES: Please see below. PHYSICAL EXAMINATION ON DISCHARGE: VITAL SIGNS: Please see below. GENERAL: HEENT: NECK: CARDIOVASCULAR EXAMINATION: RESPIRATORY EXAMINATION: ABDOMINAL EXAMINATION: EXTREMITIES: SKIN: NEUROLOGICAL EXAMINATION: PSYCHIATRIC EXAMINATION: LABORATORY DATA: Please see below. IMAGING: PROGNOSIS: ACTIVITY: [As tolerated]. DIET: DISCHARGE PLAN: DISPOSITION: Home, Self-Care. DISCHARGE INSTRUCTIONS: 1. . ITEMS TO FOLLOWUP ON ON OUTPATIENT: 1. . DISCHARGE CONDITION: [Stable]. TIME SPENT ON DISCHARGE: Greater than minutes. Vital Signs/I&Os Vital Signs Date Time Temp Pulse Resp B/P (MAP) Pulse Ox O2 Delivery O2 Flow Rate FiO2 04/13/19 16:00 97.5 71 17 143/65 (91) 94 04/12/19 14:15 Room Air I&O- Last 24 Hours up to 6 AM 04/13/19 06:00 Intake Total 300 ml Output Total 215 ml Balance 85 ml Laboratory Data Labs 24H Laboratory Tests 2 04/13/19 05:28: Nucleated Red Blood Cells % (auto) 0.0, Anion Gap 7L, Glomerular Filtration Rate > 60.0, Blood Urea Nitrogen 14#, Creatinine 0.95, Sodium Level 137#, Potassium Level 3.5, Chloride Level 99, Carbon Dioxide Level 31, Calcium Level 8.6, Aspartate Amino Transf (AST/SGOT) 29, Alanine Aminotransferase (ALT/SGPT) 32, Alkaline Phosphatase 67, Total Bilirubin 0.7, Total Protein 7.4, Albumin 3.7, Albumin/Globulin Ratio 1.00 CBC/BMP Laboratory Tests 04/13/19 05:28 Red Blood Count 4.44, Mean Corpuscular Volume 94.8, Mean Corpuscular Hemoglobin 31.8, Mean Corpuscular Hemoglobin Concent 33.5, Red Cell Distribution Width 13.7, Calcium Level 8.6, Aspartate Amino Transf (AST/SGOT) 29, Alanine Aminotransferase (ALT/SGPT) 32, Alkaline Phosphatase 67, Total Bilirubin 0.7, Total Protein 7.4, Albumin 3.7 Discharge Medications Scheduled Amlodipine Besylate (Amlodipine Besylate) 5 Mg Tablet, 5 MG PO DAILY, (Reported) Chlorthalidone (Chlorthalidone) 25 Mg Tab, 12.5 MG PO DAILY, (Reported) NO RECORD OF THIS MEDICATION FROM PHARMACY - PATIENT STATES SHE IS TAKING. LAST RX FROM DR TOVAR FROM 2015 Citalopram Hydrobromide (Citalopram HBr) 40 Mg Tab, 40 MG PO DAILY, (Reported) Gabapentin (Gabapentin) 600 Mg Tablet, 600 MG PO BID, (Reported) AM AND HS Gabapentin (Gabapentin) 600 Mg Tablet, 1,200 MG PO DAILY, (Reported) NOON Labetalol HCl (Labetalol HCl) 200 Mg Tab, 200 MG PO TID, (Reported) PATIENT TOOK 400MG 04/12/19 AM Spironolactone (Spironolactone) 25 Mg Tab, 25 MG PO DAILY, (Reported) NO RECORD OF THIS MEDICATION FROM PHARMACY - PATIENT STATES SHE IS TAKING. LAST RX FROM DR TOVAR FROM 2015 Scheduled PRN Hydroxyzine HCl (Hydroxyzine HCl) 25 Mg Tablet, 25 MG PO BID PRN for ANXIETY, (Reported) Meloxicam (Mobic) 7.5 Mg Tablet, 7.5 MG PO BID PRN for PAIN, (Reported) Methocarbamol (Methocarbamol) 500 Mg Tab, 500 MG PO BID PRN for SPASMS, (Reported) Allergies Coded Allergies: lisinopril (Verified Allergy, Unknown, 04/11/19) shellfish derived (Verified Allergy, Unknown, 04/11/19) ROB BUTLER MD Apr 13, 2019 21:01
== END 2019-04-13 19:55 | disposition home or self-care (01) | DRG 305 ==
LOC: M ED 08:44 → M ED INP 16:35 → M PCU 18:03
PROVIDERS: ADMIT Internal Medicine; ATTEND Internal Medicine
DX: I16.0 Hypertensive urgency (principal); E87.1 Hypo-osmolality and hyponatremia; F32.9 Major depressive disorder, single episode, unspecified; F41.9 Anxiety disorder, unspecified; K21.9 Gastro-esophageal reflux disease without esophagitis; G62.9 Polyneuropathy, unspecified; Z87.891 Personal history of nicotine dependence; R53.83 Other fatigue; R51 Headache; R10.13 Epigastric pain; Z91.013 Allergy to seafood; Z88.8 Allergy status to other drugs, medicaments and biological substances; Z98.1 Arthrodesis status; Z79.899 Other long term (current) drug therapy

== ENCOUNTER → 2019-06-11 | Outpatient (REF) ==
[~2019-06-11] MED LIST changes: +AMLO5TAB6 PO; +GABA-843; +GABA600T4 PO; +MOBI4TAB PO
--- NOTE | 2019-06-11 14:33 | REP ---
PORTABLE AP LATERAL SKULL: 06/11/2019. Clinical history: Autopsy. Findings: AP and lateral view which is somewhat oblique in projection are a limited examination. I cannot confirm any linear or depressed skull fracture on these images. Sutures and vascular grooves on the oblique lateral projection are noted but no definite fracture line. No intracranial air is identified on this study. Mastoids are aerated. No gross mandibular fracture. Nasal bones are poorly depicted. There may be depressed nasal fracture. Visualized sinuses were clear. AP view demonstrates a plate and screw fixation for the cervical spine. Electronically Signed by Olayinka Bai MD 06/11/2019 07:43 P
--- NOTE | 2019-06-11 14:36 | REP ---
AP LATERAL CERVICAL SPINE: 06/11/2019. Clinical history: Autopsy. Comparison: MRI cervical 12/11/2017, intraoperative x-ray 10/23/2015. Findings: AP and lateral views show anterior cervical fusion plate and screw fixation from C4-C7 with hardware intact. Alignment maintained. The C2-3 and C3-4 disc spaces and vertebral body heights are maintained. The C1-2 relationship is normal on the lateral view. Craniocervical junction is normal on the lateral view. Linear densities overlie the right lateral neck and supraclavicular region which could be folds of a dressing or cloth. The AP view shows the dens with normal relationship to the lateral masses of C1. Slight left torticollis. Some hypertrophic facet changes are noted on the AP view of the medial clavicles and posterior medial first five rib pairs included in part were unremarkable. No abnormal calcifications. There is minor apical pleural scarring. Electronically Signed by Olayinka Bai MD 06/11/2019 07:44 P
== END ==
LOC: M LAB 12:00